=== PATIENT | female | born 1970 | race Caucasian/White ===

== ENCOUNTER 2016-11-25 07:26 | Observation (INO) | payer OTHER ==
[~2016-11-25] VITALS: Ht 157.5 cm; Wt 89.5 kg
[~2016-11-25 07:26] MED LIST: AVIATAB PO; BUTAPOW6 PO; FEXO180T PO; HYDR10TA16 PO; LORT5TAB PO; OXYC-360 PO; PROM25TA5 PO; RANI150T PO; SUCR1TAB6 PO; SUMA4INJ4 SC
[2016-11-25] MEDS ORDERED: METOPROLOL TARTRATE 25 MG TAB PO PRN (07:45)
[2016-11-25] MEDS ORDERED: INSULIN HUMAN REGULAR 1,000 UNITS/10 ML VIAL SQ PRN (07:45)
[2016-11-25] MEDS ORDERED: SODIUM CHLORID 0.9% 500 ML IV PRN (07:45)
[2016-11-25] MEDS ORDERED: LACTATED RINGER'S 1000 ML IV PRN (07:45)
[2016-11-25] MEDS ORDERED: POVIDONE IODINE 5% (ANTISEPSIS KIT) 4 APPLICATIONS EACH NARE PRN (07:45)
[2016-11-25] MEDS ORDERED: ceFAZolin 2 GM PREMIX 50 ML IV SCH (07:45)
[2016-11-25] MEDS ORDERED: CHLORHEXIDINE GLUCONATE 2 % 1 PACK (2 CLOTHS) TOPICAL PRN (07:45)
[2016-11-25] MEDS ORDERED: SUMA6P SQ (07:53)
[2016-11-25] MEDS ORDERED: RANI150T PO (07:57)
[2016-11-25] MEDS ORDERED: DIVA500T3 PO (07:57)
[2016-11-25] MEDS ORDERED: FEXO180T PO (07:57)
[2016-11-25] MEDS ORDERED: NORE5TAB PO (07:57)
[2016-11-25] MEDS ORDERED: PARO20TA2 PO (07:57)
[2016-11-25] MEDS ORDERED: TRAZ1TAB45 PO (07:57)
[2016-11-25 08:18] LABS: AUTOMATED NEUTROPHIL # 2.5 TH/MM3 (1.8-7.7); BASOPHIL # 0.1 TH/MM3 (0-0.2); BASOPHIL % 0.9 % (0.0-2.0); EOSINOPHIL # 0.7 TH/MM3 (0-0.4); EOSINOPHIL % 12.6 % (0.0-4.0); HEMATOCRIT 37.7 % (35.0-46.0); HEMO FLAGS DIFF FINAL; LYMPH % 35.8 % (9.0-44.0); LYMPHOCYTE # 2.1 TH/MM3 (1.0-4.8); MEAN CELL VOLUME 92.7 FL (80.0-100.0); MEAN CORPUSCULAR HEMOGLOBIN 31.1 PG (27.0-34.0); MEAN CORPUSCULAR HGB CONC 33.6 % (32.0-36.0); MONO % 7.4 % (0.0-8.0); NEUT % 43.3 % (16.0-70.0); PLATELET COUNT 184 TH/MM3 (150-450); RED BLOOD COUNT 4.07 MIL/MM3 (4.00-5.30); WHITE BLOOD COUNT 5.8 TH/MM3 (4.0-11.0)
[2016-11-25] MEDS ORDERED: APREPITANT 40 MG CAP ONE (08:32)
[2016-11-25] MEDS ORDERED: FAMOTIDINE 20 MG/2 ML VIAL ONE ×2 (08:32→10:11)
[2016-11-25] MEDS ORDERED: MIDAZOLAM HCL 2 MG/2 ML VIAL ONE ×2 (10:07→11:47)
[2016-11-25] MEDS ORDERED: BUPIVACAINE/EPINEPHRINE 0.25% 50 ML VIAL ONE (10:08)
[2016-11-25] MEDS ORDERED: ACETAMINOPHEN 1000 MG/100 ML VIAL ONE (10:11)
[2016-11-25] MEDS ORDERED: fentaNYL CITRATE 250 MCG/5 ML AMP ONE (11:47)
--- NOTE | 2016-11-25 11:53 | PD.OP ---
Operative Report Date of Surgery: Nov 25, 2016 Preoperative Diagnosis: (1) Excessive menses Postoperative Diagnosis: (1) Excessive menses Procedure: [facility] Anesthesia: general Surgeon: Trever Gibbs Office Machine Servicer Apprentice(s): Trever Espinosa MD Nov 25, 2016 11:53
[2016-11-25] MEDS ORDERED: IBUPROFEN 600 MG TAB PO PRN (12:00)
[2016-11-25] MEDS ORDERED: LACTATED RINGER'S 1000 ML INJ 1,000 ML IV ONE (12:00)
[2016-11-25] MEDS ORDERED: NEOSTIGMINE 3 MG/3 ML SYR IV ONE (12:00)
[2016-11-25] MEDS ORDERED: SODIUM CHLORIDE 0.9% FLUSH 10 ML FLUSH IV FLUSH PRN (12:00)
[2016-11-25] MEDS ORDERED: HYDROmorphone HCL PF 1 MG/ML VIAL IVP PRN (12:00)
[2016-11-25] MEDS ORDERED: diphenhydrAMINE HCL 25 MG CAP PO PRN (12:00)
[2016-11-25] MEDS ORDERED: ePHEDrine/NS 25 MG/5 ML SYR IV ONE (12:00)
[2016-11-25] MEDS ORDERED: ONDANSETRON HCL 4 MG/2 ML VIAL IVP PRN (12:00)
[2016-11-25] MEDS ORDERED: ONDANSETRON HCL 4 MG/2 ML VIAL IV PUSH ONE (12:00)
[2016-11-25] MEDS ORDERED: PROPOFOL 200 MG/20 ML AMP IV ONE (12:00)
[2016-11-25] MEDS ORDERED: *morphine SULFATE 8 MG/ML PERIprocedure ONLY ONE ×2 (12:01→14:21)
[2016-11-25] MEDS: LACTATED RINGER'S 1000 ML INJ 1,000 ML IV SCH ×2 (12:10→22:00)
[2016-11-25] MEDS ORDERED: DO NOT ADM ANY ANTICOAGULANT DRUGS PRN (12:15)
--- NOTE | 2016-11-25 12:18 | MP ---
cc: GEOVANI GIBBS M.D. DATE OF SURGERY 11/25/2016 PROCEDURE Total vaginal hysterectomy PREOPERATIVE DIAGNOSIS Menorrhagia POSTOPERATIVE DIAGNOSIS Menorrhagia SURGEON Dr. Geovani Gibbs ESTIMATED BLOOD LOSS 150 cc COMPLICATIONS None ANESTHESIA General, Dr. Badillo FINDINGS Slightly enlarged boggy uterus. PROCEDURE IN DETAIL After informed consent, the patient taken to the operating room where she was placed under general anesthesia and placed in the supine position, legs in the candy-cane stirrups. The abdomen, perineum and vagina prepped and draped in the normal sterile fashion. After adequate anesthesia was assured, a time-out was taken. Bladder was drained with a Peterson catheter to dependent gravity and then the speculum was placed in the vagina. Cervix grasped with a single-tooth tenaculum. Cervix was injected with quarter percent Marcaine with epinephrine. We then incised the anterior portion of the cervix and dissected up to the level of bladder. This was all done without difficulty. The peritoneum was entered bluntly anteriorly. Posteriorly, we entered the posterior cul-de-sac without difficulty in a single pass. We entered the posterior cul-de-sac, clamped the uterosacral and Cardinal ligaments proximally, anteriorly and posterior peritoneum at this point. We clamped, cut and tied with a Vicryl suture, continued up the uterine arteries and the broad ligament, clamping, cutting and tying. Hemostasis was achieved so we reached utero-ovarian ligament. The utero-ovarian ligament was doubly tied with Vicryl suture. At this point, we visualize both ovaries. Fallopian tubes were grasped with a Gurjit, but did not descend. There was slight tearing which had to be cauterized on the right side and we discontinued our attempts for salpingectomy. It was not safe to do and it was felt that the risk of bleeding outweighed the benefit. At this point, all pedicles were noted be hemostatic. The ovaries were normal and hemostatic. The area where the tube had been slightly pulled was hemostatic and at this point we close the posterior cuff with a running locking stitch of Vicryl suture. The cuff was closed in a horizontal fashion with multiple [id number] sutures. Good hemostasis was achieved. The patient tolerated the procedure well. She was taken to the recovery room in stable condition after being awakened. Lap and instrument counts were reported as correct. Urine remained clear. MD JIM Calzada /11:46 AM /12:08 PM
[2016-11-25] MEDS: KETOROLAC TROMETHAMINE 30 MG/ML (IVP) VIAL IVP PRN ×2 (13:13→18:44)
[2016-11-25 16:00] VITALS: BP 125/88; PULSE 105; RESP 18; TEMP 97.6; O2SAT 95
[2016-11-25 20:00] VITALS: BP 136/90; PULSE 109; RESP 20; TEMP 95.7; O2SAT 97
[2016-11-25] MEDS: oxyCODONE/ACETAMINOPHEN 5 MG/325 MG TAB PO PRN (20:26)
[2016-11-25] MEDS: SODIUM CHLORIDE 0.9% FLUSH 10 ML FLUSH IV FLUSH SCH (20:36)
[2016-11-26] VITALS: BP 127/83; PULSE 100; RESP 20; TEMP 96.8; O2SAT 97
[2016-11-26] MEDS: KETOROLAC TROMETHAMINE 30 MG/ML (IVP) VIAL IVP PRN (00:56)
[2016-11-26] MEDS: oxyCODONE/ACETAMINOPHEN 5 MG/325 MG TAB PO PRN ×3 (00:56→09:55)
[2016-11-26 04:00] VITALS: BP 110/71; PULSE 70; RESP 18; TEMP 96.3; O2SAT 96
[2016-11-26 06:48] LABS: AUTOMATED NEUTROPHIL # 5.1 TH/MM3 (1.8-7.7); BASOPHIL % 0.5 % (0.0-2.0); EOSINOPHIL # 0.1 TH/MM3 (0-0.4); EOSINOPHIL % 1.1 % (0.0-4.0); HEMATOCRIT 34.1 % (35.0-46.0); HEMO FLAGS DIFF FINAL; LYMPH % 22.7 % (9.0-44.0); LYMPHOCYTE # 1.7 TH/MM3 (1.0-4.8); MEAN CELL VOLUME 93.2 FL (80.0-100.0); MEAN CORPUSCULAR HEMOGLOBIN 31.3 PG (27.0-34.0); MEAN CORPUSCULAR HGB CONC 33.6 % (32.0-36.0); MONO % 9.2 % (0.0-8.0); NEUT % 66.5 % (16.0-70.0); PLATELET COUNT 171 TH/MM3 (150-450); RED BLOOD COUNT 3.66 MIL/MM3 (4.00-5.30); RED CELL DISTRIBUTION WIDTH 14.2 % (11.6-17.2); WHITE BLOOD COUNT 7.6 TH/MM3 (4.0-11.0)
--- NOTE | 2016-11-26 07:58 | HHI.OB ---
Subjective Post Operative Day: 1 Remarks doing well ready for DC home Objective Vitals/I&O Vital Signs Date Time Temp Pulse Resp B/P (MAP) Pulse Ox O2 Delivery O2 Flow Rate FiO2 11/26/16 07:00 19 11/26/16 04:00 96.3 70 18 110/71 (84) 96 11/26/16 02:00 19 11/26/16 02:00 19 11/26/16 00:00 96.8 100 20 127/83 (98) 97 11/25/16 20:00 95.7 109 20 136/90 (105) 97 11/25/16 16:00 97.6 105 18 125/88 (100) 95 11/25/16 15:55 103 17 135/87 (103) 99 Nasal Cannula 2 11/25/16 15:00 100 16 124/83 (97) 96 Nasal Cannula 2 11/25/16 14:30 98.3 100 16 145/83 (103) 93 Nasal Cannula 2 11/25/16 14:00 91 14 138/83 (101) 93 Nasal Cannula 2 11/25/16 13:00 80 15 134/78 (96) 95 Nasal Cannula 2 11/25/16 12:30 82 17 125/70 (88) 98 Nasal Cannula 2 11/25/16 12:15 79 19 131/69 (89) 97 Nasal Cannula 2 11/25/16 12:00 86 20 133/67 (89) 95 Nasal Cannula 2 11/25/16 11:45 85 16 134/62 (86) 95 Nasal Cannula 2 11/25/16 11:42 98.4 106 20 146/93 (110) 96 Nasal Cannula 3 11/25/16 08:01 97.5 76 20 130/81 (97) 96 Intake & Output 11/26/16 11/26/16 07:00 19:00 Intake Total 500 ml Output Total 1100 ml Balance -600 ml Intake Oral 500 ml Output Urine Total 1100 ml Result Diagram: 11/26/16 0613 Objective Remarks GENERAL: Well-nourished, well-developed patient. CARDIOVASCULAR: Regular rate and rhythm without murmurs, gallops, or rubs. RESPIRATORY: Breath sounds equal bilaterally. No accessory muscle use. ABDOMEN/GI: Abdomen soft, non-tender, bowel sounds present. Incision: vaginal no bleeding GENITOURINARY: Light to moderate bleeding. EXTREMITIES: No cyanosis or edema, non-tender, without signs of DVT. Medications and IVs Current Medications Medications (Trade) Dose Ordered Sig/Joni Route Start Time Stop Time Status Last Admin (Betadine 5% Antisepsis Kit) 1 applic VISUAL EDUCATION TEACHER PRN EACH NARE 11/25/16 07:45 11/28/16 07:44 11/25/16 07:45 (Chlorhexidine 2% Cloth) 3 pack VISUAL EDUCATION TEACHER PRN TOPICAL 11/25/16 07:45 11/28/16 07:44 11/25/16 07:30 (NovoLIN R INJ) See Protocol Table ... VISUAL EDUCATION TEACHER PRN SQ 11/25/16 07:45 11/28/16 07:44 (NS Flush) 2 ml UNSCH PRN IV FLUSH 11/25/16 12:00 (NS Flush) 2 ml BID IV FLUSH 11/25/16 21:00 (Motrin) 600 mg Q6H PRN PO 11/25/16 12:00 (Toradol Inj) 30 mg Q6H PRN IVP 11/25/16 12:00 11/30/16 11:59 11/26/16 00:56 (Percocet 5-325 Mg) 1 tab Q4H PRN PO 11/25/16 12:00 11/26/16 05:50 (Percocet 5-325 Mg) 2 tab Q4H PRN PO 11/25/16 12:00 11/26/16 00:56 (Dilaudid Pf Inj) 1 mg Q4H PRN IVP 11/25/16 12:00 (Benadryl) 25 mg Q6H PRN PO 11/25/16 12:00 (Zofran Inj) 4 mg Q6H PRN IVP 11/25/16 12:00 11/25/16 20:36 Lactated Ringer's 1,000 ml @ 100 mls/hr Q10H IV 11/25/16 12:00 11/25/16 22:00 Miscellaneous Information ALL NURSING DEPARTME... UNSCH PRN .XX 11/25/16 12:15 11/26/16 12:14 Assessment/Plan Problem List: (1) Excessive menses ICD Codes: N92.0 - Excessive and frequent menstruation with regular cycle Status: Chronic Qualifiers: Qualified Codes: N92.0 - Excessive and frequent menstruation with regular cycle Assessment and Plan dc home pod#1 Trever Gibbs MD Nov 26, 2016 07:58
[2016-11-26] MEDS: LACTATED RINGER'S 1000 ML INJ 1,000 ML IV SCH (08:00)
[2016-11-26] MEDS ORDERED: CYCL5TAB PO ×2 (08:10→08:37)
[2016-11-26] MEDS ORDERED: OXYC1TAB63 PO (08:10)
--- NOTE | 2016-11-26 08:10 | HHI.DCPOC ---
Discharge Care Plan Diagnosis: (1) Excessive menses Report Symptoms to Your Doctor -Temperature above 100.5 degrees -Redness, of incision or excessive or foul smelling drainage -Unusual pain or calf pain -Increased vaginal bleeding -Painful or difficulty urinating -Feelings of extreme sadness or anxiety after 2 weeks Goals to Promote Your Health * To prevent worsening of your condition and complications * To maintain your health at the optimal level Directions to Meet Your Goals Take your medications as prescribed Follow your dietary instruction Follow activity as directed Ensure plenty of rest for recovery Drink fluids for hydration Keep your appointments as scheduled Take your immunizations and boosters as scheduled If your symptoms worsen call your PCP, if no PCP go to Urgent Care Center or Emergency Room Smoking is Dangerous to Your Health. Avoid second hand smoke Call the 24-hour crisis hotline for domestic abuse at Trever Gibbs MD Nov 26, 2016 08:10
--- NOTE | 2016-11-26 08:25 | HHI.DS ---
Admission Date Nov 25, 2016 at 11:51 Discharge Date: Nov 26, 2016 Admitting Diagnosis Diagnosis: (1) Excessive menses ICD Codes: N92.0 - Excessive and frequent menstruation with regular cycle Status: Chronic Brief History for [facility] Hospital Course doing well pod #1 dc home Pt Condition on Discharge: Good Discharge Disposition: Discharge Home Discharge Instructions Diet Instructions: As Tolerated, No Restrictions Activities You Can Perform: Regular-No Restrictions, Pelvic Rest Activities to Avoid: Driving for 24 hrs Follow up Referrals: [facility] - 2 Weeks @ [facility] with Trever Gibbs MD New Medications: Cyclobenzaprine (Flexeril) 5 Mg Tab 5 MG PO TID for Muscle Spasm, #90 TAB 0 Refills Oxycodone-Acetaminophen (Oxycodone-Acetaminophen) 5-325 mg Tab 1 TAB PO Q4H PRN for PAIN 1-5 IF TOLERATING PO for 7 Days, #30 TAB 0 Refills Continued Medications: Divalproex ER (Divalproex ER) 500 Mg Tab 500 MG PO DAILY for Control Seizures, #30 TAB 0 Refills Fexofenadine (Fexofenadine) 180 Mg Tab 180 MG PO DAILY for Allergy Management, #30 TAB 0 Refills Paroxetine (Paroxetine) 20 Mg Tab 20 MG PO DAILY, #30 TAB 0 Refills Ranitidine (Ranitidine) 150 Mg Tab 150 MG PO BID for Heartburn Management, #60 TAB 0 Refills Sumatriptan Inj (Imitrex Inj) 6 Mg/0.5 Ml Inj 6 MG SQ ONCE PRN for MIGRAINE HEADACHE, VIAL 0 Refills May repeat dose in 1 hour if needed. Trazodone (Trazodone) 150 Mg Tablet 150 MG PO HS for Control Depression, #30 TAB 0 Refills Discontinued Medications: Norethindrone (Norethindrone) 5 Mg Tab 5 MG PO DAILY, TAB 0 Refills Trever Gibbs MD Nov 26, 2016 08:25
[2016-11-26 08:49] VITALS: BP 125/89; PULSE 77; RESP 15; TEMP 97.1; O2SAT 96
[2016-11-26] MEDS: SODIUM CHLORIDE 0.9% FLUSH 10 ML FLUSH IV FLUSH SCH (10:06)
== END 2016-11-26 10:15 | disposition home or self-care (01) ==
LOC: HSDC 07:26 → HSDI 11:51 → HOCB 16:06
PROVIDERS: ADMIT Obstetrics & Gynecology; ATTEND Obstetrics & Gynecology
DX: N92.0 Excessive and frequent menstruation with regular cycle (principal); F41.9 Anxiety disorder, unspecified
CPT/HCPCS: 00940; 58260; 85025; 86850; 86900; 86901; 88307; G0378; J0131; J0690; J1885; J2250; J2270; J2405; J2710; J3010; J7120; J8501